=== PATIENT | female | born 2000 | race Caucasian/White ===

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

== ENCOUNTER 2020-11-26 16:38 | Emergency (ER) | payer OTHER | END 2020-11-26 16:42 | disposition home or self-care (01) | LOC: JVIRT 16:38 | DX: Z20.822 Contact with and (suspected) exposure to COVID-19 (principal) | CPT/HCPCS: C9803; Q3014-GT; U0003; U0005 ==

== ENCOUNTER 2021-03-25 10:45 | Emergency (ER) | payer OTHER ==
[2021-03-25 11:09] VITALS: BP 104/62; PULSE 80; TEMP 98.8; BMI 54.4
[2021-03-25] MEDS ORDERED: DIPHTH,PERTUSS(ACELL),TET 0.5 ML DISP.SYRIN IM ONE ×2 (11:14→11:39)
== END 2021-03-25 12:05 | disposition home or self-care (01) ==
LOC: FER 10:45
PROC: 0HQGXZZ Repair Left Hand Skin, External Approach (ICD-10-PCS; principal; 2021-03-25)
PROC: 3E0234Z Introduction of Serum, Toxoid and Vaccine into Muscle, Percutaneous Approach (ICD-10-PCS; 2021-03-25)
DX: S61.217A Laceration without foreign body of left little finger without damage to nail, initial encounter (principal); W26.0XXA Contact with knife, initial encounter
CPT/HCPCS: 90471; 90715; 99282-25

== ENCOUNTER 2022-06-16 09:38 | Emergency (ER) | payer OTHER ==
[2022-06-16 09:56] VITALS: BP 104/60; PULSE 66; RESP 18; TEMP 98.8; BMI 24.7
== END 2022-06-16 10:55 | disposition home or self-care (01) ==
LOC: FER 09:38
DX: S90.31XA Contusion of right foot, initial encounter (principal); W22.8XXA Striking against or struck by other objects, initial encounter
CPT/HCPCS: 73630-TC-LT; 99283-25

== ENCOUNTER 2023-09-08 10:13 | Emergency (ER) | payer OTHER ==
[2023-09-08 10:37] VITALS: BP 124/94; PULSE 93; RESP 17; BMI 25.6
[2023-09-08 10:44] LABS: HCG,QUALITATIVE URINE Negative
== END 2023-09-08 11:11 | disposition home or self-care (01) ==
LOC: FER 10:13
DX: I49.8 Other specified cardiac arrhythmias (principal)
CPT/HCPCS: 81003; 84703; 93005; 99284-25

== ENCOUNTER 2024-05-01 14:28 | Emergency (ER) | payer OTHER ==
[2024-05-01 14:33] VITALS: BP 121/83; PULSE 87; RESP 18; TEMP 98.6; BMI 26.5
[2024-05-01] MEDS ORDERED: IBUPROFEN 600 MG TABLET (FP) PO ONE (14:38)
[2024-05-01] MEDS: IBUPROFEN 600 MG TABLET (FP) PO ONE (14:39)
[2024-05-01 17:06] LABS: THROAT:GRP A STREP NOT DETECTED (NOTDETECTED)
== END 2024-05-01 14:50 | disposition home or self-care (01) ==
LOC: FER 14:28
DX: R09.81 Nasal congestion (principal); J02.9 Acute pharyngitis, unspecified; R51.9 Headache, unspecified; J06.9 Acute upper respiratory infection, unspecified; Z20.822 Contact with and (suspected) exposure to COVID-19
CPT/HCPCS: 0241U-QW; 87651; 99283-25